=== PATIENT | male | born 1930 | race Two or more races ===

== ENCOUNTER 2016-12-06 21:19 | Emergency (ER) | payer MEDICAID ==
[~2016-12-06] VITALS: Ht 170.2 cm; Wt 78.5 kg
[~2016-12-06 21:19] MED LIST: CEPH-37; [UNRECOGNIZED DRUG - CODE]
[2016-12-06] MEDS ORDERED: MANNITOL 20 % (20GM/100ML) 0 ML IV ONE (23:28)
[2016-12-06] MEDS ORDERED: SUCCINYLCHOLINE CHLORIDE 20 MG/ML 10ML VIAL IV ONE (23:30)
[2016-12-06] MEDS ORDERED: MANNITOL 20% SOLN 100 gm/500ml 250 ML IV ONE (23:30)
[2016-12-06] MEDS ORDERED: DEXAMETHASONE SOD PHOS 4 MG/1ML SDV INJ IM ONE (23:30)
[2016-12-06] MEDS ORDERED: ETOMIDATE (2MG/ML) 20ML VIAL IV ONE (23:30)
[2016-12-06] MEDS ORDERED: MANNITOL FTV 25% 12.5 GM/50 ML 50 ML IV ONE (23:34)
[2016-12-06] MEDS ORDERED: MIDAZOLAM DRIP 100 mg/100mL NS 100 ML IV ONE (23:43)
[2016-12-06 23:45] LABS: Basophils # (auto) 0 uL; Basophils % (auto) 0.2 % (0.0-2.0); CONDITION Y; Eosinophils # (auto) 0.2 uL; Eosinophils % (auto) 1.4 % (0.0-7.0); Hematocrit 47.2 % (41.0-53.0); Lymphocytes # (auto) 3.1 uL; Lymphocytes % (auto) 21.8 % (10.0-50.0); Mean Corpuscular Hemoglobin 30.2 pg (28.0-32.0); Mean Corpuscular Hgb Conc. 33.9 g/dL (32.0-36.0); Mean Platelet Volume 8.5 fL (7.4-10.4); Monocytes # (auto) 1.1 uL; Monocytes % (auto) 7.5 % (0.0-12.0); Neutrophils # (auto) 9.8 uL; Neutrophils % (auto) 69.1 % (37.0-80.0); Platelet Count (auto) 248 10^3/uL (140-450); Red Cell Distribution Width 14.6 % (11.6-16.0); White Blood Cell 14.2 10^3/uL (4.4-10.8)
[2016-12-07] MEDS ORDERED: MIDAZOLAM DRIP 100 mg/100mL NS 100 ML IV SCH
[2016-12-07] MEDS ORDERED: fentaNYL Drip 2500mCg/250mlNS 250 ML IV SCH
[2016-12-07] MEDS ORDERED: fentaNYL Drip 2500mCg/250mlNS 250 ML IV ONE (00:01)
[2016-12-07 00:02] LABS: INR 0.98 (0.9-1.15); Partial Thromboplastin Time 28.2 sec (22.64-33.71); Prothrombin Time 10.7 sec (9.37-12.3)
[2016-12-07 00:06] LABS: Anion Gap 11 (5-15); Aspartate Aminotransferase 23 U/L (15-37); BUN/Creatinine Ratio 14.1; Blood Urea Nitrogen 12 mg/dL (7-18); Calcium 8.5 mg/dL (8.5-10.1); Carbon Dioxide 24 mmol/L (21-32); Chloride 101 mmol/L (98-107); GFR African American 110 mL/min; GFR Non-African American 91 mL/min; Glucose 92 mg/dL (74-106); Potassium 3.7 mmol/L (3.5-5.1); Sodium 136 mmol/L (136-145)
[2016-12-07 00:12] LABS: Alkaline Phosphatase 105 U/L (45-117); Bilirubin, Total 1.2 mg/dL (0.2-1.0); Total Protein 8.2 g/dL (6.4-8.2)
[2016-12-07] MEDS ORDERED: MANNITOL FTV 25% 12.5 GM/50 ML 50 ML IV ONE (00:21)
[2016-12-07] MEDS ORDERED: PROPOFOL 100 ML IV ONE (01:14)
[2016-12-07] MEDS ORDERED: PROPOFOL 100 ML IV SCH (01:15)
[2016-12-07] MEDS ORDERED: SODIUM CHLORIDE 0.9% 250 ML IV ONE (01:15)
[2016-12-07] MEDS: SODIUM CHLORIDE 0.9% 1,000 ML IV SCH ×2 (01:21→01:41)
[2016-12-07 01:23] LABS: Allen Test Modified; Base Excess -2.2 mmol/L (-2.0-2.0); Blood 02Sat 94.3 % (96-100); Blood COHb 0.6 % (0.5-1.5); Blood MetHb 0.4 % (0.0-1.5); HCO3 23.3 mmol/L (22-26.0); HHb 5.6 % (0.0-5.0); MODE VENT - A/C; O2Hb 93.4 % (94.0-97.0); PCO2 42.3 mmHg (35.0-45.0); PCO2(T) 42.3 mmHg (35.0-45.0); PO2 77.6 mmHg (80.0-100.0); PO2(T) 77.6 mmHg (80.0-100.0); Sample Type Arterial; pH 7.358 (7.350-7.450)
[2016-12-07 04:30] VITALS: BP 150/73
== END 2016-12-07 02:00 | disposition short-term general hospital (02) ==
LOC: ER 21:24
DX: I62.00 Nontraumatic subdural hemorrhage, unspecified (principal); E78.00 Pure hypercholesterolemia, unspecified; J44.9 Chronic obstructive pulmonary disease, unspecified; E78.5 Hyperlipidemia, unspecified; I10 Essential (primary) hypertension; Z90.49 Acquired absence of other specified parts of digestive tract; D72.829 Elevated white blood cell count, unspecified
CPT/HCPCS: 31500; 36415; 36600; 70450; 71010; 80053; 82805; 84484; 85025; 85610; 85730; 87070; 87205; 93005; 94002; 96361; 96365; 96372; 99152; 99153; 99291; J0330; J1100; J2150; J2704; J3010; A4565

== ENCOUNTER 2018-07-08 18:43 | Emergency (ER) | payer MEDICAID | END 2018-07-08 19:05 | disposition left against medical advice (07) | LOC: ER 18:43 | DX: R06.02 Shortness of breath (principal); Z53.21 Procedure and treatment not carried out due to patient leaving prior to being seen by health care provider ==

== ENCOUNTER 2020-11-08 19:38 | Emergency (ER) | payer MEDICAID, OTHER ==
[~2020-11-08] VITALS: Ht 177.8 cm; Wt 75.3 kg
[2020-11-08] MEDS ORDERED: CEPHALEXIN 250 MG CAP PO ONE (22:45)
[2020-11-08 23:00] VITALS: BP 124/65
[2020-11-08] MEDS ORDERED: BACITRACIN-POLYMYXIN B TOPICAL OINT UD TOP ONE (23:15)
[2020-11-08] MEDS ORDERED: TETANUS-DIPTH-ACEL PERTUSSIS 0.5ML SYR Tdap IM ONE (23:15)
[2020-11-08] MEDS ORDERED: BACITRACIN TOP OINT 1 UD PKG TOP ONE (23:45)
== END 2020-11-09 00:37 | disposition home or self-care (01) ==
LOC: EDBD 19:38 → ER 19:43 → MERGE 19:43 → ER 11-09 00:37
DX: S81.812A Laceration without foreign body, left lower leg, initial encounter (principal); J44.9 Chronic obstructive pulmonary disease, unspecified; I10 Essential (primary) hypertension; W23.0XXA Caught, crushed, jammed, or pinched between moving objects, initial encounter; Y93.89 Activity, other specified; Y92.89 Other specified places as the place of occurrence of the external cause; Y99.8 Other external cause status
CPT/HCPCS: 73590; 90471; 90715

== ENCOUNTER 2020-11-14 12:57 | Inpatient (IN) | payer MEDICAID ==
[~2020-11-14] VITALS: Ht 172.7 cm; Wt 71.7 kg
[2020-11-14 14:10] LABS: Basophils # (auto) 0.1 10 ^3/uL (0-0.2); Basophils % (auto) 0.7 % (0.0-2.0); Eosinophils # (auto) 0.1 10 ^3/uL (0-0.8); Hematocrit 35.7 % (41.0-53.0); Hemoglobin 12.4 g/dL (13.5-17.5); Lymphocytes # (auto) 2.5 10 ^3/uL (0.4-5.4); Lymphocytes % (auto) 27.7 % (10.0-50.0); Mean Corpuscular Hemoglobin 31.4 pg (28.0-32.0); Mean Corpuscular Hgb Conc. 34.8 g/dL (32.0-36.0); Mean Corpuscular Volume 90.4 fL (80.0-100.0); Monocytes # (auto) 0.9 10 ^3/uL (0-1.3); Monocytes % (auto) 10.1 % (0.0-12.0); Neutrophils # (auto) 5.5 10 ^3/uL (1.6-8.6); Neutrophils % (auto) 60.5 % (37.0-80.0); Platelet Count (auto) 289 10^3/uL (140-450); Red Blood Cells 3.96 10^6/uL (4.5-5.90); Red Cell Distribution Width 13.6 % (11.8-14.3); White Blood Cell 9.1 10^3/uL (4.4-10.8)
[2020-11-14 14:25] LABS: Albumin 3.8 g/dL (3.4-5.0); Calcium 8.8 mg/dL (8.5-10.1); Potassium 4.1 mmol/L (3.5-5.1)
[2020-11-14 14:30] LABS: Urine WBC None Seen /hpf (0 - 3)
[2020-11-14 14:31] LABS: BUN/Creatinine Ratio 19.6; Bilirubin, Total 0.7 mg/dL (0.2-1.0); Total Protein 7.5 g/dL (6.4-8.2)
[2020-11-14 14:38] LABS: Urine Bacteria NONE SEEN /hpf (None Seen); Urine Blood Negative /uL (Negative); Urine Specific Gravity 1.017 (1.001-1.035)
[2020-11-14] MEDS ORDERED: SODIUM CHLORIDE 0.9% 1,000 ML IV ONE ×2 (15:00)
[2020-11-14] MEDS: SODIUM CHLORIDE 0.9% 1,000 ML IV SCH (19:30)
[2020-11-14] MEDS ORDERED: ACETAMINOPHEN 500 MG TAB PO PRN (19:30)
[2020-11-14] MEDS ORDERED: ONDANSETRON HCL 4 MG/2 ML VIAL IV PRN (19:30)
[2020-11-14] MEDS ORDERED: HYDROcodone-ACET 5/325MG TAB PO PRN (19:30)
[2020-11-14] MEDS ORDERED: NITROGLYCERIN 0.4 MG SL TAB SL PRN (19:30)
[2020-11-14] MEDS ORDERED: MORPHINE SULF INJ 2 MG/ML SYRINGE 1ML IV PRN ×2 (19:30)
[2020-11-14 21:50] VITALS: BP 144/73
[2020-11-14 22:00] VITALS: BP 144/73
[2020-11-15] VITALS (7 sets, daily range): BP systolic 115–144; BP diastolic 54–78
[2020-11-15] MEDS ORDERED: PNEUMOCOCCAL VACC POLYS 25 MCG/0.5 ML VIAL IM ONE
[2020-11-15 06:45] LABS: Basophils # (auto) 0 10 ^3/uL (0-0.2); Basophils % (auto) 0.4 % (0.0-2.0); Eosinophils # (auto) 0.1 10 ^3/uL (0-0.8); Eosinophils % (auto) 1.7 % (0.0-7.0); Hematocrit 33.7 % (41.0-53.0); Hemoglobin 12.2 g/dL (13.5-17.5); Lymphocytes # (auto) 1.9 10 ^3/uL (0.4-5.4); Lymphocytes % (auto) 26.2 % (10.0-50.0); Mean Corpuscular Hemoglobin 32.9 pg (28.0-32.0); Mean Corpuscular Hgb Conc. 36.1 g/dL (32.0-36.0); Mean Corpuscular Volume 91.2 fL (80.0-100.0); Monocytes # (auto) 0.7 10 ^3/uL (0-1.3); Neutrophils # (auto) 4.5 10 ^3/uL (1.6-8.6); Neutrophils % (auto) 61.7 % (37.0-80.0); Platelet Count (auto) 259 10^3/uL (140-450); Red Blood Cells 3.69 10^6/uL (4.5-5.90); Red Cell Distribution Width 13.6 % (11.8-14.3); White Blood Cell 7.3 10^3/uL (4.4-10.8)
[2020-11-15] MEDS: SODIUM CHLORIDE 0.9% 1,000 ML IV SCH ×2 (08:56→22:10)
[2020-11-15] MEDS ORDERED: FAMOTIDINE 20 MG TAB PO SCH (10:00)
[2020-11-15] MEDS ORDERED: TERB250T66 PO (10:50)
[2020-11-15] MEDS ORDERED: LOSA-39 PO (10:50)
[2020-11-15] MEDS ORDERED: AMLO-489 PO (10:50)
[2020-11-15] MEDS ORDERED: LOSARTAN POTASSIUM 50 MG TAB PO ONE (19:00)
[2020-11-15] MEDS: LABETALOL HCL 5 MG/ML 4ML SYRINGE IV PRN (19:18)
[2020-11-16 04:46] VITALS: BP 165/80
[2020-11-16] MEDS: LABETALOL HCL 5 MG/ML 4ML SYRINGE IV PRN (05:13)
[2020-11-16 06:00] VITALS: BP 137/60
[2020-11-16 07:13] LABS: Basophils # (auto) 0 10 ^3/uL (0-0.2); Basophils % (auto) 0.6 % (0.0-2.0); Eosinophils # (auto) 0.1 10 ^3/uL (0-0.8); Eosinophils % (auto) 0.8 % (0.0-7.0); Hematocrit 34.2 % (41.0-53.0); Hemoglobin 12.3 g/dL (13.5-17.5); Lymphocytes # (auto) 1.9 10 ^3/uL (0.4-5.4); Lymphocytes % (auto) 22.7 % (10.0-50.0); Mean Corpuscular Hemoglobin 32.3 pg (28.0-32.0); Mean Corpuscular Volume 89.6 fL (80.0-100.0); Monocytes # (auto) 0.8 10 ^3/uL (0-1.3); Monocytes % (auto) 9.9 % (0.0-12.0); Neutrophils # (auto) 5.7 10 ^3/uL (1.6-8.6); Platelet Count (auto) 282 10^3/uL (140-450); Red Blood Cells 3.81 10^6/uL (4.5-5.90); Red Cell Distribution Width 13.2 % (11.8-14.3); White Blood Cell 8.6 10^3/uL (4.4-10.8)
[2020-11-16 07:26] LABS: Magnesium 1.8 mg/dL (1.6-2.6); Potassium 3.4 mmol/L (3.5-5.1)
[2020-11-16 07:32] LABS: Albumin 3.4 g/dL (3.4-5.0); BUN/Creatinine Ratio 15.1; Bilirubin, Total 0.6 mg/dL (0.2-1.0); Calcium 8.6 mg/dL (8.5-10.1); Phosphorus 2.3 mg/dL (2.5-4.90); Total Protein 6.9 g/dL (6.4-8.2)
[2020-11-16 08:30] VITALS: BP 139/65
[2020-11-16] MEDS: amLODIPine BESYLATE 5 MG TAB PO SCH (09:54)
[2020-11-16 12:30] VITALS: BP 129/66
[2020-11-16] MEDS: SODIUM CHLORIDE 0.9% 1,000 ML IV SCH (13:44)
[2020-11-16 17:00] VITALS: BP 133/65
[2020-11-16] MEDS ORDERED: POTASSIUM CHL 20 Meq TABLET PO ONE (18:15)
[2020-11-16 22:00] VITALS: BP 134/61
[2020-11-16] MEDS ORDERED: LOSARTAN POTASSIUM 50 MG TAB PO SCH ×2 (22:00)
[2020-11-17] VITALS (10 sets, daily range): BP systolic 117–146; BP diastolic 54–70
[2020-11-17 05:57] LABS: INR 1.04 (0.9-1.15); Partial Thromboplastin Time 25.8 sec (23.0-31.2)
[2020-11-17] MEDS: SODIUM CHLORIDE 0.9% 1,000 ML IV SCH ×2 (05:58→13:45)
[2020-11-17] MEDS ORDERED: LIDOCAINE 2%HCL (LOCAL ANESTH.) INJ 20ML MDV ONE (08:51)
[2020-11-17] MEDS ORDERED: MIDAZOLAM HCL 1MG/1ML-2 ML VIAL ONE (09:01)
[2020-11-17] MEDS ORDERED: HEPARIN SODIUM (PORCINE) 5000 UNITS/ML 1ML VIAL ONE (09:01)
[2020-11-17] MEDS ORDERED: fentaNYL CITRATE 100 MCG/2 ML VL ONE (09:01)
[2020-11-17] MEDS ORDERED: ANGIOMAX 250 MG VIAL IV ONE (09:01)
[2020-11-17] MEDS ORDERED: VERAPAMIL 2.5MG/ML INJ 2ML VIAL IV ONE (09:02)
[2020-11-17] MEDS ORDERED: SODIUM CHL 0.9% 0 ML ONE (09:02)
[2020-11-17] MEDS: amLODIPine BESYLATE 5 MG TAB PO SCH (13:01)
== END 2020-11-17 17:00 | disposition short-term general hospital (02) | DRG 192 ==
LOC: ER 12:59 → TELE 19:28 → TELE-EAST 21:39
PROVIDERS: ADMIT Nurse Practitioner Acute Care; ATTEND Internal Medicine
PROC: B211YZZ Fluoroscopy of Multiple Coronary Arteries using Other Contrast (ICD-10-PCS; principal; 2020-11-17)
DX: I35.0 Nonrheumatic aortic (valve) stenosis (principal); I20.0 Unstable angina; E87.1 Hypo-osmolality and hyponatremia; F41.9 Anxiety disorder, unspecified; I10 Essential (primary) hypertension; Z90.49 Acquired absence of other specified parts of digestive tract; Z20.822 Contact with and (suspected) exposure to COVID-19
CPT/HCPCS: 36415; 70450; 71045; 80053; 80061; 81001; 83735; 83880; 84100; 84484; 85025; 85610; 85730; 86850; 86900; 86901; 87426; 93005; 93306; 93454; 93886; 96360; 96361; G0378; J2250; J2405; J3490

== ENCOUNTER 2021-06-12 20:29 | Emergency (ER) | payer MEDICAID ==
[~2021-06-12] VITALS: Ht 170.2 cm; Wt 75.7 kg
[~2021-06-12 20:29] MED LIST changes: +AMLO-489 PO; +LOSA-39 PO; +TERB250T66 PO
[2021-06-12 21:10] LABS: Basophils # (auto) 0.1 10 ^3/uL (0-0.2); Basophils % (auto) 0.7 % (0.0-2.0); Eosinophils # (auto) 0.3 10 ^3/uL (0-0.8); Hematocrit 46.4 % (41.0-53.0); Hemoglobin 15.6 g/dL (13.5-17.5); Lymphocytes # (auto) 1.6 10 ^3/uL (0.4-5.4); Lymphocytes % (auto) 16.2 % (10.0-50.0); Mean Corpuscular Hemoglobin 29.6 pg (28.0-32.0); Mean Corpuscular Hgb Conc. 33.7 g/dL (32.0-36.0); Mean Corpuscular Volume 87.8 fL (80.0-100.0); Monocytes # (auto) 1.1 10 ^3/uL (0-1.3); Monocytes % (auto) 11.1 % (0.0-12.0); Neutrophils # (auto) 6.9 10 ^3/uL (1.6-8.6); Nucleated Red Blood Cells % 0.1 %; Red Blood Cells 5.29 10^6/uL (4.5-5.90); Red Cell Distribution Width 15.1 % (11.8-14.3)
[2021-06-12 21:26] LABS: Calcium 8.7 mg/dL (8.5-10.1); Potassium 4.1 mmol/L (3.5-5.1)
[2021-06-12 21:31] LABS: BUN/Creatinine Ratio 12.7; Bilirubin, Total 0.5 mg/dL (0.2-1.0); Total Protein 8.1 g/dL (6.4-8.2)
[2021-06-12 22:55] VITALS: BP 143/86
== END 2021-06-13 02:23 | disposition home or self-care (01) ==
LOC: ER 20:30
DX: J02.9 Acute pharyngitis, unspecified (principal); J44.9 Chronic obstructive pulmonary disease, unspecified; E78.5 Hyperlipidemia, unspecified; I10 Essential (primary) hypertension; Z90.49 Acquired absence of other specified parts of digestive tract; Z86.73 Personal history of transient ischemic attack (TIA), and cerebral infarction without residual deficits; Z20.822 Contact with and (suspected) exposure to COVID-19
CPT/HCPCS: 36415; 71045; 80053; 83880; 84484; 85025; 87426; 93005

== ENCOUNTER 2021-09-13 17:56 | Inpatient (IN) | payer MEDICAID ==
[~2021-09-13] VITALS: Ht 170.2 cm; Wt 76.3 kg
[2021-09-13] MEDS ORDERED: methylPREDNISolone SOD SUCC 125 MG/2 ML VL IV ONE (19:00)
[2021-09-13] MEDS ORDERED: ASPirin 81 mg TAB PO ONE (19:00)
[2021-09-13 19:15] LABS: Urine WBC None Seen /hpf (0 - 3)
[2021-09-13 19:20] LABS: Basophils # (auto) 0 10 ^3/uL (0-0.2); Basophils % (auto) 0.5 % (0.0-2.0); Eosinophils # (auto) 0.4 10 ^3/uL (0-0.8); Hematocrit 43.2 % (41.0-53.0); Hemoglobin 15.2 g/dL (13.5-17.5); Lymphocytes # (auto) 3.3 10 ^3/uL (0.4-5.4); Lymphocytes % (auto) 38.1 % (10.0-50.0); Mean Corpuscular Hemoglobin 31.1 pg (28.0-32.0); Mean Corpuscular Hgb Conc. 35.1 g/dL (32.0-36.0); Mean Corpuscular Volume 88.6 fL (80.0-100.0); Monocytes # (auto) 0.7 10 ^3/uL (0-1.3); Monocytes % (auto) 7.9 % (0.0-12.0); Neutrophils # (auto) 4.2 10 ^3/uL (1.6-8.6); Neutrophils % (auto) 48.5 % (37.0-80.0); Nucleated Red Blood Cells % 0.2 %; Red Blood Cells 4.88 10^6/uL (4.5-5.90); Red Cell Distribution Width 14.6 % (11.8-14.3); White Blood Cell 8.8 10^3/uL (4.4-10.8)
[2021-09-13 19:25] LABS: Urine Bacteria NONE SEEN /hpf (None Seen); Urine Blood Negative /uL (Negative); Urine Specific Gravity 1.008 (1.001-1.035)
[2021-09-13 19:34] LABS: Albumin 3.7 g/dL (3.4-5.0); BUN/Creatinine Ratio 16.2; Calcium 8.7 mg/dL (8.5-10.1); Magnesium 2.4 mg/dL (1.6-2.6); Potassium 4.1 mmol/L (3.5-5.1)
[2021-09-13 19:39] LABS: Bilirubin, Total 0.4 mg/dL (0.2-1.0); Total Protein 7.5 g/dL (6.4-8.2)
[2021-09-13 19:45] LABS: INR 1.01 (0.9-1.15); Partial Thromboplastin Time 27.1 sec (23.6-33.0)
[2021-09-13] MEDS ORDERED: NITROGLYCERIN 0.4 MG SL TAB SL PRN (21:45)
[2021-09-13] MEDS ORDERED: MORPHINE SULFATE 4 MG/ML SYR/VIAL IV PRN (21:45)
[2021-09-13] MEDS ORDERED: HYDROcodone-ACET 5/325MG TAB PO PRN (21:45)
[2021-09-13] MEDS ORDERED: ACETAMINOPHEN 325 MG TAB PO PRN (21:45)
[2021-09-13] MEDS ORDERED: ONDANSETRON HCL 4 MG/2 ML VIAL IV PRN (21:45)
[2021-09-13] MEDS ORDERED: MORPHINE SULFATE INJECTION 2 MG/ML SYRG IV PRN (21:45)
[2021-09-13] MEDS: ASCORBIC ACID 500 MG TAB PO SCH (22:00)
[2021-09-14] VITALS: BP 169/93
[2021-09-14 00:10] VITALS: BP 169/93
[2021-09-14] MEDS ORDERED: ALBU108A5 INH (04:20)
[2021-09-14] MEDS ORDERED: FLUO20CA90 PO (04:20)
[2021-09-14] MEDS ORDERED: ASPI81CH49 PO (04:20)
[2021-09-14] MEDS ORDERED: LOSA-69 PO (04:22)
[2021-09-14] MEDS ORDERED: FEXO-90 PO (04:22)
[2021-09-14 05:00] VITALS: BP 150/71
[2021-09-14 06:43] LABS: Basophils # (auto) 0 10 ^3/uL (0-0.2); Basophils % (auto) 0.1 % (0.0-2.0); Eosinophils # (auto) 0 10 ^3/uL (0-0.8); Hematocrit 43.7 % (41.0-53.0); Hemoglobin 15.5 g/dL (13.5-17.5); Lymphocytes # (auto) 1.3 10 ^3/uL (0.4-5.4); Lymphocytes % (auto) 14.6 % (10.0-50.0); Mean Corpuscular Hemoglobin 31.3 pg (28.0-32.0); Mean Corpuscular Hgb Conc. 35.6 g/dL (32.0-36.0); Monocytes # (auto) 0 10 ^3/uL (0-1.3); Monocytes % (auto) 0.5 % (0.0-12.0); Neutrophils # (auto) 7.5 10 ^3/uL (1.6-8.6); Neutrophils % (auto) 84.8 % (37.0-80.0); Nucleated Red Blood Cells % 0.1 %; Red Blood Cells 4.96 10^6/uL (4.5-5.90); Red Cell Distribution Width 14.5 % (11.8-14.3); White Blood Cell 8.8 10^3/uL (4.4-10.8)
[2021-09-14 07:06] LABS: Potassium 4.3 mmol/L (3.5-5.1)
[2021-09-14 07:13] LABS: Albumin 3.7 g/dL (3.4-5.0); BUN/Creatinine Ratio 17.9; Calcium 9.1 mg/dL (8.5-10.1)
[2021-09-14 07:16] LABS: Bilirubin, Total 0.5 mg/dL (0.2-1.0); Total Protein 7.4 g/dL (6.4-8.2)
[2021-09-14 08:00] VITALS: BP 159/73
[2021-09-14] MEDS: ASCORBIC ACID 500 MG TAB PO SCH ×2 (10:00→22:06)
[2021-09-14] MEDS: ENOXAPARIN SOD 40 MG/0.4 ML SYRINGE SC SCH (11:09)
[2021-09-14] MEDS: ZINC SULFATE 220mg CAP or TAB PO SCH (11:09)
[2021-09-14] MEDS: MULTIPLE VITAMIN TAB PO SCH (11:09)
[2021-09-14] MEDS ORDERED: OMNIPAQUE ORAL SOLN 500ml 12mg/ml PO ONE (11:10)
[2021-09-14 12:00] VITALS: BP 105/63
[2021-09-14 22:00] VITALS: BP 152/72
[2021-09-14] MEDS: SUCRALFATE 1 GM/10 ML ORAL SUSP PO SCH (22:06)
[2021-09-14] MEDS: PANTOPRAZOLE 40 MG TAB PO SCH (22:06)
[2021-09-15 05:00] VITALS: BP 157/82
[2021-09-15] MEDS: SUCRALFATE 1 GM/10 ML ORAL SUSP PO SCH ×4 (06:21→21:02)
[2021-09-15 08:00] VITALS: BP 159/69
[2021-09-15 09:00] VITALS: BP 159/69
[2021-09-15] MEDS: MULTIPLE VITAMIN TAB PO SCH (10:00)
[2021-09-15] MEDS: FLUoxetine HCL 20 MG CAP PO SCH (10:00)
[2021-09-15] MEDS: ZINC SULFATE 220mg CAP or TAB PO SCH (10:00)
[2021-09-15] MEDS: ENOXAPARIN SOD 40 MG/0.4 ML SYRINGE SC SCH (10:00)
[2021-09-15] MEDS: TERBINAFINE HCL 250 MG PO SCH (10:00)
[2021-09-15] MEDS ORDERED: TERBINAFINE HCL 250 MG PO SCH (10:00)
[2021-09-15] MEDS: PANTOPRAZOLE 40 MG TAB PO SCH ×2 (10:00→21:03)
[2021-09-15] MEDS: ASCORBIC ACID 500 MG TAB PO SCH ×2 (10:00→21:03)
[2021-09-15] MEDS: LOSARTAN POTASSIUM 50 MG TAB PO SCH (10:05)
[2021-09-15] MEDS: amLODIPine BESYLATE 5 MG TAB PO SCH (10:06)
[2021-09-15 13:00] VITALS: BP 143/57
[2021-09-15] MEDS ORDERED: fentaNYL CITRATE 100 MCG/2 ML VL ONE (13:34)
[2021-09-15] MEDS ORDERED: diphenhdrAMINE HCL 50 MG/1 ML VL ONE (13:34)
[2021-09-15] MEDS ORDERED: LIDOCAINE VISCOUS 2% 15ML UD ONE (13:35)
[2021-09-15] MEDS: MIDAZOLAM HCL 5 MG/ML-1ML VIAL ONE ×2 (13:55→14:02)
[2021-09-15 16:50] VITALS: BP 129/53
[2021-09-15 22:00] VITALS: BP 133/69
[2021-09-16 05:00] VITALS: BP 149/73
[2021-09-16 06:01] LABS: Basophils # (auto) 0 10 ^3/uL (0-0.2); Basophils % (auto) 0.5 % (0.0-2.0); Eosinophils # (auto) 0.4 10 ^3/uL (0-0.8); Eosinophils % (auto) 4.6 % (0.0-7.0); Hematocrit 44.5 % (41.0-53.0); Hemoglobin 15.6 g/dL (13.5-17.5); Lymphocytes # (auto) 2.5 10 ^3/uL (0.4-5.4); Lymphocytes % (auto) 26.6 % (10.0-50.0); Mean Corpuscular Hemoglobin 31.2 pg (28.0-32.0); Mean Corpuscular Hgb Conc. 35.1 g/dL (32.0-36.0); Mean Corpuscular Volume 88.8 fL (80.0-100.0); Monocytes # (auto) 0.8 10 ^3/uL (0-1.3); Monocytes % (auto) 8.3 % (0.0-12.0); Neutrophils # (auto) 5.7 10 ^3/uL (1.6-8.6); Nucleated Red Blood Cells % 0.1 %; Red Blood Cells 5.01 10^6/uL (4.5-5.90); Red Cell Distribution Width 14.7 % (11.8-14.3); White Blood Cell 9.5 10^3/uL (4.4-10.8)
[2021-09-16] MEDS: SUCRALFATE 1 GM/10 ML ORAL SUSP PO SCH ×3 (06:43→17:00)
[2021-09-16 08:00] VITALS: BP 153/51
[2021-09-16] MEDS: ASCORBIC ACID 500 MG TAB PO SCH (08:44)
[2021-09-16] MEDS: MULTIPLE VITAMIN TAB PO SCH (08:44)
[2021-09-16] MEDS: ZINC SULFATE 220mg CAP or TAB PO SCH (08:44)
[2021-09-16] MEDS: PANTOPRAZOLE 40 MG TAB PO SCH (08:45)
[2021-09-16] MEDS: FLUoxetine HCL 20 MG CAP PO SCH (08:46)
[2021-09-16] MEDS: amLODIPine BESYLATE 5 MG TAB PO SCH (08:46)
[2021-09-16] MEDS: LOSARTAN POTASSIUM 50 MG TAB PO SCH (08:46)
[2021-09-16] MEDS: TERBINAFINE HCL 250 MG PO SCH (08:49)
[2021-09-16 13:09] VITALS: BP 151/73
[2021-09-16] MEDS ORDERED: SUCR1SUS10 PO (17:06)
[2021-09-16] MEDS ORDERED: PANT40T PO (17:06)
[2021-09-16 17:18] VITALS: BP 125/52
[2021-09-16 17:27] VITALS: BP 125/52
[2021-09-17] MEDS ORDERED: ENOXAPARIN SOD 40 MG/0.4 ML SYRINGE SC SCH (10:00)
[2021-09-17 10:42] LABS: Hepatitis B Surface Antibody Negative (Negative)
[2021-09-17 12:38] LABS: Hepatitis A Total Antibody Positive (Negative); Hepatitis C Antibody Negative (Negative)
== END 2021-09-16 17:52 | disposition home or self-care (01) | DRG 241 ==
LOC: ER 17:56 → TELE 21:32 → TELE-EAST 22:13
PROVIDERS: ADMIT Internal Medicine; ATTEND Internal Medicine
PROC: 0DB68ZX Excision of Stomach, Via Natural or Artificial Opening Endoscopic, Diagnostic (ICD-10-PCS; 2021-09-15)
PROC: 0DB38ZX Excision of Lower Esophagus, Via Natural or Artificial Opening Endoscopic, Diagnostic (ICD-10-PCS; 2021-09-15)
PROC: 0DB98ZX Excision of Duodenum, Via Natural or Artificial Opening Endoscopic, Diagnostic (ICD-10-PCS; principal; 2021-09-15 14:02)
DX: K29.70 Gastritis, unspecified, without bleeding (principal); E78.5 Hyperlipidemia, unspecified; K25.9 Gastric ulcer, unspecified as acute or chronic, without hemorrhage or perforation; I10 Essential (primary) hypertension; I25.10 Atherosclerotic heart disease of native coronary artery without angina pectoris; J44.9 Chronic obstructive pulmonary disease, unspecified; K21.00 Gastro-esophageal reflux disease with esophagitis, without bleeding; K29.80 Duodenitis without bleeding; K44.9 Diaphragmatic hernia without obstruction or gangrene; Z86.73 Personal history of transient ischemic attack (TIA), and cerebral infarction without residual deficits; Z95.2 Presence of prosthetic heart valve; Z90.49 Acquired absence of other specified parts of digestive tract; Z98.49 Cataract extraction status, unspecified eye; Z20.822 Contact with and (suspected) exposure to COVID-19
CPT/HCPCS: 36415; 71045; 74176; 80053; 81001; 83735; 83880; 84484; 85025; 85610; 85730; 86704; 86706; 86708; 86803; 86850; 86900; 86901; 87340; 93306; 96374; G0378; J2250